=== PATIENT | female | born 1955 | race African-American/Black ===

== ENCOUNTER 2019-07-13 12:54 | Emergency (ER) | payer OTHER ==
[~2019-07-13] VITALS: Ht 170.2 cm; Wt 81.6 kg
[2019-07-13] MEDS ORDERED: LIPITOR80 MG ORAL (13:17)
[2019-07-13] MEDS ORDERED: AMLODIPINE BES2.5 MG ORAL (13:17)
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
[2019-07-13 13:59] VITALS: BP 124/77
--- NOTE | 2019-07-13 14:23 | NUR ---
ED Nurse Note:pt. had x-rays done and pain meds received
--- NOTE | 2019-07-13 14:33 | Diagnostic Imaging Report ---
Indication: Neck Pain Findings: 3 views of the cervical spine were obtained. C4-C7 discectomy and anterior instrumented fusion noted. Hardware alignment and position is unremarkable. Alignment of the cervical spine appears anatomic. No fracture or soft tissue swelling is identified. The bones are osteopenic. The oblique views demonstrate no significant bony neural foraminal stenosis. IMPRESSION: Anterior cervical discectomy and fusion C4-C7. Osteopenia
--- NOTE | 2019-07-13 14:34 | Diagnostic Imaging Report ---
Indication: Back pain Comparison: None Findings: 3 views of the lumbar spine were obtained. Moderate calcification of aorta demonstrated. There are surgical clips in the abdomen. There is minimal anterolisthesis at L3-4. The intervertebral disc heights are relatively normal. Bones are osteopenic. There is an old compression fracture deformity of T10 and T11. Correlate clinically. There is pseudoarthrosis present at the lumbosacral junction on the right and probably on the left. IMPRESSION: No acute injury identified. Multiple other findings as described
[2019-07-13] MEDS ORDERED: TYLENOL EXTRA500 MG ORAL (14:50)
[2019-07-13] MEDS ORDERED: ROBAXIN-750750 MG PO (14:50)
[2019-07-13] MEDS ORDERED: LIDODERM700 M1 TOPIC (14:50)
[2019-07-13 15:00] VITALS: BP 124/77
--- NOTE | 2019-07-13 15:00 | NUR ---
ER DISCHARGE NOTE: Patient is cleared to be discharged per ERMD, pt is aox4, on room air, with stable vital signs. pt was given dc and prescription instructions, pt was able to verbalize understanding, pt is able to ambulate with steady gait. pt took all belongings.
== END 2019-07-13 15:00 | disposition home or self-care (01) ==
LOC: EMR 13:50
DX: S16.1XXA Strain of muscle, fascia and tendon at neck level, initial encounter (principal); M54.5 Low back pain; E78.5 Hyperlipidemia, unspecified; I10 Essential (primary) hypertension; Z98.1 Arthrodesis status; M48.54XD Collapsed vertebra, not elsewhere classified, thoracic region, subsequent encounter for fracture with routine healing; V43.62XA Car passenger injured in collision with other type car in traffic accident, initial encounter; Y92.410 Unspecified street and highway as the place of occurrence of the external cause
CPT/HCPCS: 72020; 72052; 99284

== ENCOUNTER 2020-12-27 13:59 | Emergency (ER) | payer OTHER ==
[~2020-12-27] VITALS: Ht 170.2 cm; Wt 86.2 kg
[~2020-12-27 13:59] MED LIST: AMLODIPINE BES2.5 MG ORAL; LIDODERM700 M1 TOPIC; LIPITOR80 MG ORAL; ROBAXIN-750750 MG PO; TYLENOL EXTRA500 MG ORAL
[2020-12-27 14:04] VITALS: BP 150/80
--- NOTE | 2020-12-27 14:14 | NUR ---
ED Nurse Note: Patient from home and walked in for medical clearance. Per patient, she will have an outpatient eye surgery on wednesday12/30/20 and her PCP requires her to have an EKG before the surgery. Denies CP. Patient is AAO x4, ambulatory.
--- NOTE | 2020-12-27 14:28 | Emergency Room Report ---
History of Present Illness General Chief Complaint: General Complaint Source: Patient Present Illness HPI 65-year-old female with history of hypertension currently taking medication here from the doctor's office to do EKGs for medical clearance preeye surgery which has been to happen in 3 days. Patient had blood drawn at primary care provider's office Dr. Jay, who does not have privileges at [facility], and was told to come to [facility] for EKG. Patient reports that her primary doctor is signing the clearance form preop. Denies chest pain, shortness of breath, headache and dizziness. Is not requesting anything other than an EKG. Allergies: Coded Allergies: ASPIRIN (Verified Allergy, Unknown, 12/27/20) LATEX, NATURAL RUBBER (Verified Allergy, Unknown, 12/27/20) COVID-19 Screening Contact w/high risk pt: No Experienced COVID-19 symptoms?: No COVID-19 Testing performed DRUG AND ALCOHOL COUNSELLOR: No Patient History Past Medical History: see triage record Past Surgical History: none Pertinent Family History: none Now: No Reviewed Nursing Documentation: PMH: Agreed; PSxH: Agreed Nursing Documentation-PMH Past Medical History: No History, Except For Hx Hypertension: Yes - hyperlipidemia Review of Systems All Other Systems: negative except mentioned in HPI Physical Exam Vital Signs Date Time Temp Pulse Resp B/P (MAP) Pulse Ox O2 Delivery O2 Flow Rate FiO2 12/27/20 14:04 98.2 78 16 150/80 (103) 96 Room Air Sp02 EP Interpretation: reviewed, normal General Appearance: well appearing, no apparent distress Head: normocephalic, atraumatic Eyes: bilateral eye normal inspection, bilateral eye PERRL ENT: normal pharynx, no angioedema Neck: supple Respiratory: no respiratory distress, no retraction, no accessory muscle use Cardiovascular #1: regular rate, rhythm, no edema, no murmur Cardiovascular #2: 2+ carotid (R), 2+ carotid (L), 2+ radial (R), 2+ radial (L) Gastrointestinal: non tender, soft Musculoskeletal: gait/station normal, normal range of motion Neurologic: alert, normal gait Psychiatric: mood/affect normal Skin: no rash Lymphatic: no adenopathy Medical Decision Making PA Attestation All my diagnosis and treatment plans were reviewed ad discussed with my supervising physician Dr. Moreno Diagnostic Impression: Primary Impression: Encounter for generalized patient complaints ER Course 65-year-old female with history of hypertension currently taking medication here from the doctor's office to do EKGs for medical clearance preeye surgery which has been to happen in 3 days. Patient had blood drawn at primary care provider's office Dr. Jay, who does not have privileges at [facility], and was told to come to [facility] for EKG. Patient reports that her primary doctor is signing the clearance form preop. Denies chest pain, shortness of breath, headache and dizziness. Is not requesting anything other than an EKG. Ddx considered but are not limited to: ND, Angina, COPD, GERD, Vital signs: are WNL, pt. is afebrile H&PE are most consistent with generalized medical clearance pre-op ORDERS: EKG, ED INTERVENTIONS: None required at this time. DISCHARGE: At this time pt. is stable for d/c to home. Will provide printed patient care instructions, and any necessary prescriptions. Care plan and follow up instructions have been discussed with the patient prior to discharge. EKG Diagnostic Results Rate: normal Rhythm: NSR ST Segments: no acute changes Other Impression no acute st changes ASA given to the pt in ED: No Last Vital Signs Date Time Temp Pulse Resp B/P (MAP) Pulse Ox O2 Delivery O2 Flow Rate FiO2 12/27/20 14:04 98.2 78 16 150/80 (103) 96 Room Air Disposition: HOME, SELF-CARE Condition: Stable Additional Instructions: follow up with primary care provider for pre-op clearance, bloodworks and further evaluation Mary Ann Mendes Dec 27, 2020 14:28
[2020-12-27 14:37] VITALS: BP 145/79
--- NOTE | 2020-12-27 14:37 | NUR ---
ER DISCHARGE NOTE: Patient is cleared to be discharged per PA, pt is aox4, on room air, with stable vital signs. pt was given dc instructions, pt was able to verbalize understanding, pt id band removed without complications. pt is able to ambulate with steady gait. pt took all belongings.
== END 2020-12-27 14:56 | disposition home or self-care (01) ==
LOC: EMR 14:35
DX: Z01.818 Encounter for other preprocedural examination (principal); E78.5 Hyperlipidemia, unspecified; I10 Essential (primary) hypertension; Z88.6 Allergy status to analgesic agent; Z91.040 Latex allergy status
CPT/HCPCS: 93005; 99282